=== PATIENT | female | born 1935 | race Caucasian/White ===

== ENCOUNTER 2016-10-30 18:58 | Outpatient (CLI) | payer MEDICARE, OTHER | END 2016-10-30 23:59 | disposition short-term general hospital (02) | DX: R56.9 Unspecified convulsions (principal) | CPT/HCPCS: A0425; A0427 ==

== ENCOUNTER 2020-05-17 12:00 | Outpatient (CLI) | payer MEDICARE, OTHER | END 2020-05-17 12:01 | disposition EMS.NT | LOC: EMS 12:00 | PROVIDERS: ATTEND Surgery | DX: R46.89 Other symptoms and signs involving appearance and behavior (principal) ==

== ENCOUNTER 2020-07-13 17:45 | Outpatient (CLI) | payer MEDICARE, OTHER ==
--- OUTSIDE RECORDS SUMMARY | 2020-07-22 00:03 | EXTERNAL MEDICAL SUMMARY RPT | Continuity of Care Document ---
:1935 Demographics Phone Unavailable Preferred Language Jamaican Marital Status Unknown Protestant Affiliation Unknown Race Unknown Ethnic Group Unknown Author Organization [facility] Address [address] [place] [address] Phone Care Team Providers Name Role Phone Rader Unavailable Unavailable Bjorseth Unavailable Unavailable Problems date description facility Patient Education [facility] Never smoked tobacco (finding) [facility] Finding [facility] 2020-05-17 12:00 OTHER SYMPTOMS AND SIGNS INVOLVING i [facility] APPEARANCE AND BEHAVIOR 2020-05-17 16:58 [facility], initial e 2020-06-29 09:43 Unspecified intracapsular fracture [facility] of right femur, subsequen 2020-07-14 00:15 Urinary tract infection, site not [facility] specified Allergies date description facility hydrochlorothiazide [facility] lisinopril [facility] Medications date description facility 2020-05-17 00:00:00 Amlodipine 5 MG Oral Tablet [facility] 2020-05-17 00:00:00 Gemfibrozil 600 MG Oral Tablet [facility] 2020-05-17 00:00:00 Levothyroxine Sodium 0.05 MG Oral Tabl [facility] 2020-05-17 00:00:00 Amlodipine 5 MG Oral Tablet [facility] 2020-05-17 00:00:00 Gemfibrozil 600 MG Oral Tablet [facility] 2020-05-17 00:00:00 Levothyroxine Sodium 0.05 MG Oral Tabl [facility] 2020-05-20 00:00:00 Aspirin 81 MG Chewable Tablet [facility] Procedures date description facility 2020-05-17 00:00:00 Diagnosis [facility] date description [facility] 2020-05-17 00:00:00 [facility] date description facility 2020-05-17 00:00:00 [facility] date description facility 2020-05-17 00:00:00 Finding [facility] date description facility 2020-05-17 00:00:00 General Physician [facility] date description facility 2020-05-17 00:00:00 [facility] date description facility 2020-05-17 00:00:00 [facility] date description facility 2020-05-18 00:00:00 [facility] date description facility 2020-06-29 00:00:00 General [facility] date description facility 2020-06-29 00:00:00 [facility] date description facility 2020-07-13 00:00:00 [facility] date description facility 2020-07-13 00:00:00 [facility] date description facility 2020-07-13 00:00:00 [facility] date description facility 2020-07-14 00:00:00 Diagnosis [facility] date description facility 2020-07-14 00:00:00 [facility] date description facility 2020-07-14 00:00:00 [facility] date description facility 2020-07-14 00:00:00 [facility] date description facility 2020-07-14 00:00:00 Finding [facility] date description facility 2020-07-14 00:00:00 [facility] date description facility 2020-07-14 00:00:00 General [facility] date description facility 2020-07-14 00:00:00 [facility] Results Social History date description facility [id number] Never smoked tobacco (finding) [facility] Social History date description facility [id number] Never smoked tobacco (finding) [facility] date description facility [id number]
== END 2020-07-13 17:46 | disposition short-term general hospital (02) ==
LOC: EMS 17:45
PROVIDERS: ATTEND Surgery
DX: R09.02 Hypoxemia (principal)
CPT/HCPCS: A0425; A0427